=== PATIENT | male | born 1940 | race Caucasian/White ===

== ENCOUNTER 2018-06-26 06:20 | Day surgery (SDC) | payer MEDICARE ==
[2018-06-22 13:00] LABS: BASOPHILS % (AUTO) 0.9 % (0.0-5.0); EOSINOPHILS % (AUTO) 1.7 % (0.0-8.0); HEMATOCRIT 41.2 % (42-54); LYMPHOCYTES % (AUTO) 29.4 % (21.0-51.0); MEAN CORPUSCULAR HEMOGLOBIN 33.2 pg (27.0-33.0); MEAN CORPUSCULAR VOLUME 97.8 fL (79-99); MONOCYTES % (AUTO) 10.2 % (3.0-13.0); NEUTROPHILS % (AUTO) 57.8 % (40.0-77.0); PLATELET COUNT (AUTO) 229 K/uL (130-400); RED BLOOD CELL COUNT(AUTO) 4.21 MIL/uL (4.50-6.20); RED CELL DISTRIBUTION WIDTH 12.6 % (11.0-15.5); WHITE BLOOD COUNT (AUTO) 4.7 K/uL (4.8-10.8)
[2018-06-22 13:12] VITALS: BP 150/67
[2018-06-22 13:12] LABS: CREATININE 0.9 mg/dL (0.5-1.5); POTASSIUM 4.7 mmol/L (3.5-5.1)
--- NOTE | 2018-06-22 13:41 | NUR ---
NOTE DR IRENE HAS REVIEWED EKG NO FURTHER ORDERS
[2018-06-26] VITALS (12 sets, daily range): BP systolic 124–155; BP diastolic 63–83
[~2018-06-26] VITALS: Ht 185.4 cm; Wt 109.3 kg
[~2018-06-26 06:20] MED LIST: AMLO5TAB9 PO; ASPI-555 PO; ATOR40TA71 PO; B12 PO; CINN1CAP PO; CLOP75TA14 PO; ESOM40CA54 PO; GLIM1TAB2 PO; GLUCOSAMINE PO; ICOS1CAP PO; LIRA0.6P SQ; METF-527 PO; METO25TA6 PO; MULT-1203 PO; OLME1TAB40 PO; POTA10CA44 PO; UBID150C PO; VIT D3 PO
[2018-06-26] MEDS ORDERED: SODIUM CHLORIDE 0.9% 1000ML 1,000 ML IV ONE (06:30)
[2018-06-26] MEDS ORDERED: CEFAZOLIN SODIUM 1 GM VIAL ONE (06:31)
[2018-06-26] MEDS ORDERED: LIDOCAINE HCL-MPF 0.5% 50ML VIAL IJ ONE (06:57)
[2018-06-26] MEDS ORDERED: DEXAMETHASONE SOD PHOSPHATE 10MG/ML 1ML VIAL ONE (06:59)
[2018-06-26] MEDS ORDERED: LIDOCAINE PF 2% 5ML ABBOJECT ONE (06:59)
[2018-06-26] MEDS ORDERED: MIDAZOLAM HCL 1 MG/ML 2ML VIAL ONE (06:59)
[2018-06-26] MEDS ORDERED: ONDANSETRON HCL 4 MG/2 ML VIAL ONE (07:00)
[2018-06-26] MEDS ORDERED: FENTANYL CITRATE PF 50 MCG/1 ML 2ML VIAL ONE (07:00)
[2018-06-26] MEDS ORDERED: PROPOFOL 10 MG/ML 20ML VIAL IV ONE (07:00)
[2018-06-26] MEDS ORDERED: CEFAZOLIN SODIUM 1 GM VIAL IVP ONE (08:00)
== END 2018-06-26 09:35 | disposition home or self-care (01) ==
LOC: DAH 06:20
PROVIDERS: ATTEND Neurological Surgery
DX: G56.02 Carpal tunnel syndrome, left upper limb (principal); Z79.899 Other long term (current) drug therapy; Z79.84 Long term (current) use of oral hypoglycemic drugs; I10 Essential (primary) hypertension; E66.9 Obesity, unspecified; M19.90 Unspecified osteoarthritis, unspecified site; E11.9 Type 2 diabetes mellitus without complications
CPT/HCPCS: 36415; 64721; 71045; 80048; 82948 ×2; 85025; 93005; A4218; J0690; J1100; J2001; J2250; J2405; J2704; J3010; J3490; J7030

== ENCOUNTER → 2018-11-06 | Outpatient (CLI) | payer MEDICARE | END | disposition home or self-care (01) | LOC: SHCH 11:08 | PROVIDERS: ATTEND Internal Medicine Cardiovascular Disease | DX: I73.9 Peripheral vascular disease, unspecified (principal) | CPT/HCPCS: 93925 ==

== ENCOUNTER → 2019-04-02 | Outpatient (CLI) | payer MEDICARE ==
[~2019-04-02] MED LIST changes: +GLIM1TAB18 PO; -GLIM1TAB2 PO; -OLME1TAB40 PO; +OLME1TAB82 PO
== END | disposition home or self-care (01) ==
LOC: RAH 13:35
PROVIDERS: ATTEND Internal Medicine
DX: K57.30 Diverticulosis of large intestine without perforation or abscess without bleeding (principal); K59.00 Constipation, unspecified; N20.0 Calculus of kidney; I70.0 Atherosclerosis of aorta; J98.11 Atelectasis; R31.9 Hematuria, unspecified
CPT/HCPCS: 74176

== ENCOUNTER → 2019-11-22 | Outpatient (CLI) | payer MEDICARE ==
[~2019-11-22] MED LIST changes: -ASPI-555 PO; +ASPI-556 PO
== END | disposition home or self-care (01) ==
LOC: SHCH 13:26
PROVIDERS: ATTEND Internal Medicine Cardiovascular Disease
DX: I65.23 Occlusion and stenosis of bilateral carotid arteries (principal)
CPT/HCPCS: 93880

== ENCOUNTER → 2019-12-20 | Outpatient (CLI) | payer MEDICARE | END | disposition home or self-care (01) | LOC: RAH 07:37 | PROVIDERS: ATTEND Internal Medicine | DX: N28.1 Cyst of kidney, acquired (principal); K57.30 Diverticulosis of large intestine without perforation or abscess without bleeding; K40.90 Unilateral inguinal hernia, without obstruction or gangrene, not specified as recurrent; M47.816 Spondylosis without myelopathy or radiculopathy, lumbar region; J98.11 Atelectasis; Z90.89 Acquired absence of other organs | CPT/HCPCS: 74176 ==

== ENCOUNTER → 2020-05-14 | Outpatient (CLI) | payer MEDICARE ==
[~2020-05-14] MED LIST changes: +AMLO-257 PO; -AMLO5TAB9 PO; +OLME-7 PO; -OLME1TAB82 PO
== END | disposition home or self-care (01) ==
LOC: SHCH 12:51
PROVIDERS: ATTEND Internal Medicine Cardiovascular Disease
DX: I65.23 Occlusion and stenosis of bilateral carotid arteries (principal); I35.1 Nonrheumatic aortic (valve) insufficiency; R01.1 Cardiac murmur, unspecified; I67.9 Cerebrovascular disease, unspecified; R60.9 Edema, unspecified; I87.2 Venous insufficiency (chronic) (peripheral); E66.9 Obesity, unspecified; E78.5 Hyperlipidemia, unspecified; E11.9 Type 2 diabetes mellitus without complications; I35.0 Nonrheumatic aortic (valve) stenosis
CPT/HCPCS: 93306; 93356; 93880; 93970

== ENCOUNTER → 2020-07-24 | Outpatient (CLI) | payer MEDICARE | END | disposition home or self-care (01) | LOC: OIH 14:52 | PROVIDERS: ATTEND Internal Medicine | DX: I48.0 Paroxysmal atrial fibrillation (principal); I50.41 Acute combined systolic (congestive) and diastolic (congestive) heart failure | CPT/HCPCS: 71046 ==

== ENCOUNTER 2020-10-07 08:50 | Day surgery (SDC) | payer MEDICARE ==
[2020-10-03 16:11] LABS: BASOPHILS % (AUTO) 0.5 % (0.0-5.0); EOSINOPHILS % (AUTO) 2.2 % (0.0-8.0); HEMATOCRIT 41.7 % (42-54); LYMPHOCYTES % (AUTO) 26.7 % (21.0-51.0); MEAN CORPUSCULAR HEMOGLOBIN 31.5 pg (27.0-33.0); MEAN CORPUSCULAR HGB CONC 33.1 g/dL (32.0-36.0); MEAN CORPUSCULAR VOLUME 95.2 fL (79-99); MONOCYTES % (AUTO) 9.5 % (3.0-13.0); NEUTROPHILS % (AUTO) 60.8 % (40.0-77.0); PLATELET COUNT (AUTO) 268 K/uL (130-400); RED BLOOD CELL COUNT(AUTO) 4.38 MIL/uL (4.50-6.20); RED CELL DISTRIBUTION WIDTH 13.2 % (11.0-15.5); WHITE BLOOD COUNT (AUTO) 7.3 K/uL (4.8-10.8)
[2020-10-03 16:12] LABS: APPEARANCE,URINE Clear (CLEAR); BILIRUBIN,URINE Negative (NEGATIVE); COLOR,URINE Yellow (YELLOW); GLUCOSE, URINE (UA) Negative (NEGATIVE); KETONES,URINE Negative (NEGATIVE); LEUKOCYTE ESTERASE ,URINE Negative (NEGATIVE); NITRATE,URINE Negative (NEGATIVE); OCCULT BLOOD,URINE Negative (NEGATIVE); PROTEIN,URINE Negative (NEGATIVE); UROBILINOGEN,URINE 0.2 mg/dL (0.2-1.0)
[2020-10-03 16:30] LABS: PROTHROMBIN TIME 10.9 SEC (9.6-11.6)
[2020-10-03 16:31] LABS: PARTIAL THROMBOPLASTIN TIME 26.8 SEC (26.3-35.5)
[2020-10-03 16:33] LABS: CREATININE 1.2 mg/dL (0.5-1.5)
[2020-10-06 12:11] VITALS: BP 136/81
[~2020-10-07] VITALS: Ht 185.4 cm; Wt 116.5 kg
[2020-10-07] VITALS (23 sets, daily range): BP systolic 83–131; BP diastolic 42–82
[~2020-10-07 08:50] MED LIST changes: -AMLO-257 PO; +APIX5TAB PO; +ATOR-2 PO; -ATOR40TA71 PO; -B12 PO; -CINN1CAP PO; -CLOP75TA14 PO; +ESOM40CA PO; -ESOM40CA54 PO; +FURO40TA5 PO; -GLIM1TAB18 PO; +GLIM2TAB30 PO; +INSU100V37 SQ; -LIRA0.6P SQ; +MAGN400T8 PO; -METO25TA6 PO; +METO50TA18 PO; -OLME-7 PO; +POTA-79 PO; -POTA10CA44 PO; -UBID150C PO; +UBID50CA23 PO; -VIT D3 PO; +VITA1CAP85 PO; +VITAMIN B12 PO; +VITAMIN D3 PO
[2020-10-07] MEDS ORDERED: 0.9%NACL 1000ML 1,000 ML IV ONE (09:05)
[2020-10-07] MEDS ORDERED: NALOXONE HCL 0.4 MG/1 ML ML ONE (09:30)
[2020-10-07] MEDS ORDERED: FLUMAZENIL 0.1MG/1ML 5ML VIAL IV ONE (09:30)
[2020-10-07] MEDS ORDERED: FENTANYL CITRATE PF 50 MCG/1 ML 2ML VIAL ONE ×2 (09:31→16:18)
[2020-10-07] MEDS ORDERED: MIDAZOLAM HCL 1 MG/ML 2ML VIAL ONE ×3 (09:32→16:18)
[2020-10-07] MEDS ORDERED: LIDOCAINE HCL 400MG/20ML VIAL ONE (12:07)
[2020-10-07] MEDS ORDERED: NITROGLYCERIN 2 MG VIAL IV ONE (12:07)
[2020-10-07] MEDS ORDERED: IOHEXOL 350 MG/ML 100ML INFUS..BTL IV ONE (12:07)
[2020-10-07] MEDS ORDERED: HEPARIN 10,000 UNIT/10ML (1,000 UNIT/ML) VIAL ONE (12:07)
[2020-10-07] MEDS ORDERED: IOHEXOL-350 50ML VIAL IV ONE ×2 (12:07→13:22)
[2020-10-07] MEDS ORDERED: SODIUM BICARB 50MEQ 50ML VIAL 50 ML ONE (12:07)
[2020-10-07] MEDS ORDERED: MEPERIDINE-PF 25 MG/ML SYG ONE (12:39)
[2020-10-07] MEDS ORDERED: HYDRALAZINE 20MG/ML VIAL ONE (13:16)
[2020-10-07] MEDS ORDERED: LABETALOL 20MG VIAL IV ONE (13:40)
[2020-10-07] MEDS ORDERED: 0.9%NACL 10ML VIAL IVP SCH (14:00)
[2020-10-07] MEDS ORDERED: DEXTROSE 50%-WATER 50 ML DISP.SYRIN IV PRN (14:00)
[2020-10-07] MEDS ORDERED: MORPHINE 4 MG SYG IV ONE (15:00)
[2020-10-07] MEDS ORDERED: ONDANSETRON 4MG INJ IVP ONE (15:00)
[2020-10-07] MEDS ORDERED: LIDOCAINE HCL 2% VISCOUS 15 ML UDCUP ONE (16:18)
[2020-10-07] MEDS ORDERED: PROPOFOL 1000 MG/100 ML 100 ML IV ONE (16:21)
[2020-10-07] MEDS ORDERED: INSULIN HUMULIN R 100 UNIT/ML 3ML SQ SCH (16:30)
== END 2020-10-07 18:30 | disposition home or self-care (01) ==
LOC: DAH 08:50
PROVIDERS: ATTEND Internal Medicine Cardiovascular Disease
DX: I08.0 Rheumatic disorders of both mitral and aortic valves (principal); I25.119 Atherosclerotic heart disease of native coronary artery with unspecified angina pectoris; Z20.822 Contact with and (suspected) exposure to COVID-19; I48.0 Paroxysmal atrial fibrillation; I27.20 Pulmonary hypertension, unspecified; I25.2 Old myocardial infarction; I11.0 Hypertensive heart disease with heart failure; I50.42 Chronic combined systolic (congestive) and diastolic (congestive) heart failure; E78.5 Hyperlipidemia, unspecified; E11.9 Type 2 diabetes mellitus without complications; J44.9 Chronic obstructive pulmonary disease, unspecified; Z79.01 Long term (current) use of anticoagulants; Z79.84 Long term (current) use of oral hypoglycemic drugs; Z79.82 Long term (current) use of aspirin; Z86.73 Personal history of transient ischemic attack (TIA), and cerebral infarction without residual deficits; Z95.5 Presence of coronary angioplasty implant and graft
CPT/HCPCS: 36415; 71045; 80048; 81003; 82948 ×2; 85025; 85610; 85730; 87635; 92960; 93005 ×3; 93313; 93461; A4215; A4216; A4221; A4222; A4223 ×3; A4606; A4615; A4657; A4663 ×2; C1760; C1769 ×3; C1893; C1894; C9803; J0360; J1644; J2175; J2250; J2270; J2405; J2704; J3010; J3490 ×4; J7030; Q9965; Q9967 ×3; 99152; 99153; 99156; 99157; J2310

== ENCOUNTER → 2022-01-01 | Outpatient (CLI) | payer MEDICARE ==
[~2022-01-01] MED LIST changes: +MAGN400T56 PO; -MAGN400T8 PO
== END | disposition home or self-care (01) ==
LOC: OIH 07:36
PROVIDERS: ATTEND Internal Medicine Cardiovascular Disease
DX: I08.0 Rheumatic disorders of both mitral and aortic valves (principal); I11.9 Hypertensive heart disease without heart failure; E11.9 Type 2 diabetes mellitus without complications; E66.9 Obesity, unspecified; E78.5 Hyperlipidemia, unspecified
CPT/HCPCS: 93306

== ENCOUNTER → 2022-08-27 | Outpatient (CLI) | payer MEDICARE ==
[~2022-08-27] MED LIST changes: +POTA-364 PO; -POTA-79 PO
[2022-08-27 15:28] LABS: BASOPHILS % (AUTO) 0.4 % (0.0-5.0); EOSINOPHILS % (AUTO) 1.6 % (0.0-8.0); HEMATOCRIT 40.1 % (42-54); LYMPHOCYTES % (AUTO) 18.5 % (21.0-51.0); MEAN CORPUSCULAR HEMOGLOBIN 32.8 pg (27.0-33.0); MEAN CORPUSCULAR HGB CONC 32.7 g/dL (32.0-36.0); MEAN CORPUSCULAR VOLUME 100.5 fL (79-99); MONOCYTES % (AUTO) 8.6 % (3.0-13.0); NEUTROPHILS % (AUTO) 70.7 % (40.0-77.0); PLATELET COUNT (AUTO) 287 K/uL (130-400); RED BLOOD CELL COUNT(AUTO) 3.99 MIL/uL (4.50-6.20); RED CELL DISTRIBUTION WIDTH 12.1 % (11.0-15.5); WHITE BLOOD COUNT (AUTO) 9.3 K/uL (4.8-10.8)
[2022-08-27 15:57] LABS: ALBUMIN 3.8 g/dL (3.5-5.0); CREATININE 2.9 mg/dL (0.5-1.5); MAGNESIUM 2.4 mg/dL (1.80-2.40); TOTAL PROTEIN, SERUM 7.8 g/dL (6.0-8.3)
== END | disposition home or self-care (01) ==
LOC: LAB 13:47
PROVIDERS: ATTEND Physician Assistant
DX: I25.10 Atherosclerotic heart disease of native coronary artery without angina pectoris (principal); I10 Essential (primary) hypertension
CPT/HCPCS: 36415; 80053; 83735; 83880; 85025

== ENCOUNTER → 2022-10-04 | Outpatient (CLI) | payer MEDICARE ==
[2022-10-04 12:08] LABS: BASOPHILS % (AUTO) 0.5 % (0.0-5.0); HEMATOCRIT 36.8 % (42-54); LYMPHOCYTES % (AUTO) 30.2 % (21.0-51.0); MEAN CORPUSCULAR HEMOGLOBIN 32.2 pg (27.0-33.0); MEAN CORPUSCULAR HGB CONC 32.3 g/dL (32.0-36.0); MEAN CORPUSCULAR VOLUME 99.5 fL (79-99); MONOCYTES % (AUTO) 9.7 % (3.0-13.0); NEUTROPHILS % (AUTO) 57.2 % (40.0-77.0); PLATELET COUNT (AUTO) 350 K/uL (130-400); RED CELL DISTRIBUTION WIDTH 12.3 % (11.0-15.5); WHITE BLOOD COUNT (AUTO) 9.2 K/uL (4.8-10.8)
[2022-10-04 12:42] LABS: ALBUMIN 3.4 g/dL (3.5-5.0); CREATININE 1.9 mg/dL (0.5-1.5); MAGNESIUM 2.1 mg/dL (1.80-2.40); POTASSIUM 4.1 mmol/L (3.5-5.1); TOTAL PROTEIN, SERUM 7.7 g/dL (6.0-8.3)
== END | disposition home or self-care (01) ==
LOC: LAB 09-28 14:02
PROVIDERS: ATTEND Internal Medicine Cardiovascular Disease
DX: I10 Essential (primary) hypertension (principal); E78.5 Hyperlipidemia, unspecified
CPT/HCPCS: 36415; 80053; 83735; 83880; 85025

== ENCOUNTER 2023-01-21 07:05 | Day surgery (SDC) | payer MEDICARE ==
[2023-01-19 10:08] LABS: APPEARANCE,URINE CLEAR (CLEAR); BILIRUBIN,URINE NEGATIVE (NEGATIVE); COLOR,URINE LIGHT-YELLOW (YELLOW); GLUCOSE, URINE (UA) NEGATIVE (NEGATIVE); KETONES,URINE NEGATIVE (NEGATIVE); LEUKOCYTE ESTERASE ,URINE NEGATIVE Leu/uL (NEGATIVE); NITRATE,URINE NEGATIVE (NEGATIVE); OCCULT BLOOD,URINE NEGATIVE (NEGATIVE); PROTEIN,URINE NEGATIVE (NEGATIVE); UROBILINOGEN,URINE 0.2 mg/dL (0.2-1.0)
[2023-01-19 10:11] VITALS: BP 98/63; PULSE 100; RESP 21
[2023-01-19 10:12] LABS: ADD UA MICROSCOPIC NO
[2023-01-19 10:13] LABS: BASOPHILS # (AUTO) 0.06 K/uL (0.00-0.20); BASOPHILS % (AUTO) 0.7 % (0.0-5.0); EOSINOPHILS % (AUTO) 1.1 % (0.0-8.0); HEMATOCRIT 48.7 % (42-54); IMMATURE GRANULOCYTE ABSOLUTE 0.02 K/uL (0-1); LYMPHOCYTES # (AUTO) 2.5 K/uL (1.0-4.8); LYMPHOCYTES % (AUTO) 27.8 % (21.0-51.0); MEAN CORPUSCULAR HEMOGLOBIN 31.4 pg (27.0-33.0); MEAN CORPUSCULAR HGB CONC 32.4 g/dL (32.0-36.0); MEAN CORPUSCULAR VOLUME 96.8 fL (79-99); MONOCYTES # (AUTO) 0.9 K/uL (0.1-1.0); MONOCYTES % (AUTO) 9.5 % (3.0-13.0); NEUTROPHILS # (AUTO) 5.4 K/uL (1.8-7.7); NEUTROPHILS % (AUTO) 60.7 % (40.0-77.0); PLATELET COUNT (AUTO) 302 K/uL (130-400); RED BLOOD CELL COUNT(AUTO) 5.03 MIL/uL (4.50-6.20); RED CELL DISTRIBUTION WIDTH 16.1 % (11.0-15.5); WHITE BLOOD COUNT (AUTO) 8.9 K/uL (4.8-10.8)
[2023-01-19 10:21] LABS: CREATININE 1.6 mg/dL (0.5-1.5)
[2023-01-19 10:25] LABS: INR < 0.93 (0.85-1.15); PROTHROMBIN TIME 10.8 SEC (9.6-11.6)
[2023-01-19 10:27] LABS: PARTIAL THROMBOPLASTIN TIME 26.4 SEC (26.3-35.5)
[2023-01-19 10:54] LABS: B-TYPE NATRIURETIC PEPTIDE 107 pg/mL (0-100)
[~2023-01-21] VITALS: Ht 185.4 cm; Wt 115.8 kg
[2023-01-21] VITALS (10 sets, daily range): BP systolic 88–125; BP diastolic 42–72; PULSE 57–86; RESP 12–20
[~2023-01-21 07:05] MED LIST changes: -ATOR-2 PO; -ESOM40CA PO; +FERS325 PO; -GLUCOSAMINE PO; -ICOS1CAP PO; -MAGN400T56 PO; -METF-527 PO; +SACU1TAB PO; +SPIR25TA6 PO; -UBID50CA23 PO; -VITA1CAP85 PO; -VITAMIN B12 PO; +[UNRECOGNIZED DRUG - OTHER] PO
[2023-01-21] MEDS ORDERED: 0.9%NACL 1000ML 1,000 ML IV ONE (07:42)
[2023-01-21] MEDS ORDERED: MEPERIDINE-PF 25 MG/ML SYG ONE ×4 (09:54→11:56)
[2023-01-21] MEDS ORDERED: LIDOCAINE HCL 400MG/20ML VIAL ONE ×2 (09:54→11:46)
[2023-01-21] MEDS ORDERED: MIDAZOLAM HCL 1 MG/ML 2ML VIAL ONE ×5 (09:55→11:56)
[2023-01-21] MEDS ORDERED: HEPARIN 10,000 UNIT/10ML (1,000 UNIT/ML) VIAL ONE ×2 (09:55→11:48)
[2023-01-21] MEDS ORDERED: IOHEXOL 350 MG/ML 100ML INFUS..BTL IV ONE ×2 (09:55→11:47)
[2023-01-21] MEDS ORDERED: IOHEXOL-350 50ML VIAL IV ONE ×2 (09:55→11:47)
[2023-01-21] MEDS ORDERED: FENTANYL CITRATE PF 50 MCG/1 ML 2ML VIAL ONE (11:46)
[2023-01-21] MEDS ORDERED: VERAPAMIL HCL 2.5 MG/ML VIAL ONE (11:48)
[2023-01-21] MEDS ORDERED: 0.9%NACL 1000ML 1,000 ML IV SCH (12:30)
[2023-01-21] MEDS ORDERED: ACETAMINOPHEN WITH CODEINE 1 TAB TAB ONE (14:39)
== END 2023-01-21 16:45 | disposition home or self-care (01) ==
LOC: DAH 07:05
PROVIDERS: ATTEND Internal Medicine Cardiovascular Disease
DX: I25.10 Atherosclerotic heart disease of native coronary artery without angina pectoris (principal); I35.0 Nonrheumatic aortic (valve) stenosis; I25.5 Ischemic cardiomyopathy; I48.91 Unspecified atrial fibrillation; I10 Essential (primary) hypertension; E78.5 Hyperlipidemia, unspecified; Z79.84 Long term (current) use of oral hypoglycemic drugs; Z79.899 Other long term (current) drug therapy; Z79.01 Long term (current) use of anticoagulants; Z88.8 Allergy status to other drugs, medicaments and biological substances; Z87.891 Personal history of nicotine dependence
CPT/HCPCS: 80048; 83880; 85025; 85610; 85730; 81003; 36415; 71045; 93005; 96360; 96361; 93461; 82948; A4223 ×3; Q9965 ×2; C1769 ×4; C1894 ×3; C1760; C1893; J3490; J7030; J1644 ×3; J2250 ×4; J2175 ×4; Q9967 ×2; A4215; A4222; A4221; A4663; A4216; A4606; 99156; 99157; J3010